=== PATIENT | male | born 1940 | race Caucasian/White ===

== ENCOUNTER 2020-12-12 14:09 | Day surgery (SDC) | payer MEDICARE, OTHER ==
[~2020-12-12] VITALS: Ht 177.8 cm; Wt 77.6 kg
[~2020-12-12 14:09] MED LIST: ASPI81CH; AXIRON30 MG/1.5 TOP; B Complex1 EAC2; DOXA4 PO; Doxazosin Mesyla2 MG; Hawthorn Berry500 MG; LUTEIN1 GM; MAGNESIUM CITR100 MG; MSM-GLUCOSAMIN1 EACH; MSM1500 MG; Multiple Vitam1 EAC1; OMEP20ER; PARO10; PARO30 PO; POTBIC25; ROSU5 PO; Saw Palmetto80 MG; Sudogest30 MG; Tart Cherry Ca1 EACH; Viagra100 MG
--- NOTE | 2020-12-12 17:10 | NUR ---
12/12/20 171 Gely Morfin PT. CRAWLED OUT OF HIS BED & CAME OUT TO THE [address] WAY SAYING HE'S BEEN WAITING AN HOUR & HE NEEDED TO "PEE" & WONDERING IF HE WAS FORGOTTEN. PT. MET BY RN IN [facility] & HELPED HIM TO THE BR. PT. INSTRUCTED HE HAD HIS CALL LIGHT AT THE BEDSIDE & WAS INSTRUCTED TO CALL IF NEEDED ANYTHING. PT. VERBALIZED HE DIDN'T KNOW IT WAS THERE. PT. THEN HELPED BACK TO HIS BED & WHILE ASSESSING PT. PT. HAD VERBALIZED THAT HE HAS DEMENTIA & DOESN'T REMEMBER WHEN HE TOOK ASPIRIN. PT. 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 PT. VERBALIZES HE TOLD HIS HOW HE FELT & DIDN'T WANT TO COME FOR HIS PROCEDURE HERE AT THE [facility]. HAD TOLD PT. THAT SHE THOUGHT HE SHOULD KEEP HIS PROCEDURE & PT. WAS GOING TO TELL THE TODAY ABOUT THINKING HE HAD A STROKE. PT. HAD NO OTHER WEAKNESS OR ANY FACIAL DROOP. [facility]SC WENT OUT TO TALK TO PT.'S TO SEE IF SHE HAD NOTICED ANYTHING DIFFERENT WITH HER 'S NEUROLOGIC STATUS. PER HIS HE DOES HAVE DEMENTIA BUT HE DIDN'T TAKE HIS CAFFEINE PILLS TODAY WHICH HELP HIM. HIS DID MENTION THAT HE MENTIONED TO HER THAT HE THINKS HE HAD A STROKE IN THE MIDDLE OF THE NIGHT. WENT BACK TO TALK WITH PT. & PT. HAD VERBALIZED THAT HE DIDN'T WANT TO HAVE HIS PROCEDURE TODAY THINKING IT COULD EXACERBATE HIS "STROKE" PT. STATED. PT. V.S.S. PT. WITH SINUS RIP ON [address] LEMUS NOTIFIED ABOUT PT. & DRFabby IN TALKING WITH PT. PT.'S WAS BROUGHT BACK TO HIS ROOM. PT. STATED "I JUST WANT TO GO HOME." DR. LEMUS WAS TALKING WITH PT. & HIS & THOUGHT IT WOULD BE A GOOD IDEA TO GO TO THE ER TO GET CHECKED OUT. PT. HAD TOLD DR. LEMUS THAT HE HAD A LINDQUIST AT THE TOP OF HIS HEAD RATING A "3". PT. HAD SAID THAT HE HAD HAD THE LINDQUIST BUT DIDN'T KNOW IF IT WAS HIS SINUSES. PT. FINALLY DECIDED HE WOULD GO TO THE ER. DR. LEMUS CALLED OVER TO THE ER & GAVE REPORT. PT. WAS TAKEN BY WC OVER TO THE ER ( WAS WITH PT.) & A TEAM OF NURSES WERE WAITING FOR THE PT.. REPORT WAS GIVEN TO ODILON PINEDO BY [facility]. PT. WAS TAKEN OVER TO ER AT 1610. PER DR. LEMUS OK TO LEAVE PT. IV IN. IV WAS CAPPED & WRAPPED WITH COBAN. PT. ALSO HAD VERBALIZED THAT HE WAS SHOPPING WITH HIS TODAY & HAD LOST HER & HE HAD ALSO VERBALIZED THAT HE HAD FORGOTTEN WHERE THE CAR WAS.
== END 2020-12-12 16:10 | disposition other institution (70) ==
LOC: ORSCSDS 14:09
DX: R13.10 Dysphagia, unspecified (principal); K21.9 Gastro-esophageal reflux disease without esophagitis; Z53.9 Procedure and treatment not carried out, unspecified reason
CPT/HCPCS: J2704; J7120

== ENCOUNTER 2020-12-12 16:15 | Emergency (ER) | payer MEDICARE, OTHER ==
[~2020-12-12] VITALS: Ht 177.8 cm; Wt 77.1 kg
[2020-12-12 16:37] LABS: BASOPHILS ABSOLUTE AUTO 0.08 K/mm3 (0.00-0.23); BASOPHILS PERCENT AUTO 1 % (0-2); EOSINOPHILS ABSOLUTE AUTO 0.27 K/mm3 (0.00-0.68); EOSINOPHILS PERCENT AUTO 3 % (0-6); Hematocrit 43.3 % (37.0-53.0); Hemoglobin 15.4 g/dL (13.5-17.5); IMMATURE GRAN ABSOLUTE AUTO 0.05 K/mm3 (0.00-0.10); IMMATURE GRAN PERCENT AUTO 1 % (0-1); LYMPHOCYTES ABSOLUTE AUTO 1.67 K/mm3 (0.84-5.20); LYMPHOCYTES PERCENT AUTO 19 % (21-46); MONOCYTES PERCENT AUTO 10 % (4-13); Mean Corpuscular HGB 32.7 pg (26.0-34.0); Mean Corpuscular HGB Conc 35.6 g/dL (31.5-36.5); Mean Corpuscular Volume 92 fL (80-100); Mean Platelet Volume 10.8 fL (9.1-12.4); NEUTROPHILS ABSOLUTE AUTO 5.82 K/mm3 (1.96-9.15); NEUTROPHILS PERCENT AUTO 66 % (41-73); Platelet Count 161 K/mm3 (150-400); RDW Coefficient Variation 13.2 % (11.7-14.2); RDW Standard Deviation 44.2 fL (35.1-46.3); Red Blood Cell Count 4.71 M/mm3 (4.30-5.90); White Blood Cell Count 8.79 K/mm3 (4.00-11.30)
[2020-12-12 16:58] LABS: Alanine Aminotransfer (ALT/SGP 34 U/L (12-78); Albumin/Globulin Ratio 1.2 (0.8-1.8); Alk Phos 50 U/L (50-136); Anion Gap 6 mmol/L (6-16); Aspartate Aminotrans (AST/SGOT 30 U/L (12-37); Bilirubin, Total 2.7 mg/dL (0.1-1.0); Blood Urea Nitrogen 8 mg/dL (8-24); Bun/Creatinine Ratio 8.8 (12.0-20.0); CO2, Blood 27 mmol/L (21-32); Calcium, Blood 9.9 mg/dL (8.5-10.1); Chloride, Blood 110 mmol/L (98-108); Creatinine, Blood 0.91 mg/dL (0.60-1.20); Globulin, Blood 3.2 g/dL (2.2-4.0); Glomerular Filtration Rate >60 (60-); Glucose, Blood 84 mg/dL (70-99); Potassium, Blood 3.9 mmol/L (3.5-5.5); Sodium, Blood 143 mmol/L (136-145); Total Protein, Blood 7.2 g/dL (6.4-8.2)
== END 2020-12-12 18:22 | disposition left against medical advice (07) ==
LOC: ER 16:15
PROVIDERS: Physician Assistant
DX: R41.0 Disorientation, unspecified (principal); Z53.21 Procedure and treatment not carried out due to patient leaving prior to being seen by health care provider
CPT/HCPCS: 70450; 80053; 85025; 93005; 93010; 99283-25

== ENCOUNTER 2022-09-03 09:26 | Emergency (ER) | payer MEDICARE, OTHER ==
[~2022-09-03] VITALS: Ht 177.8 cm; Wt 72.6 kg
== END 2022-09-03 12:35 | disposition home or self-care (01) ==
LOC: ER 09:26
DX: S00.11XA Contusion of right eyelid and periocular area, initial encounter (principal); S60.221A Contusion of right hand, initial encounter; F03.90 Unspecified dementia, unspecified severity, without behavioral disturbance, psychotic disturbance, mood disturbance, and anxiety; W18.30XA Fall on same level, unspecified, initial encounter; Z79.899 Other long term (current) drug therapy; Z79.82 Long term (current) use of aspirin; Z88.8 Allergy status to other drugs, medicaments and biological substances; Z95.0 Presence of cardiac pacemaker
CPT/HCPCS: 70450

== ENCOUNTER 2022-09-06 18:22 | Emergency (ER) | payer MEDICARE, OTHER ==
[~2022-09-06] VITALS: Ht 177.8 cm; Wt 90.7 kg
[2022-09-06 19:00] LABS: Calcium, Ionized (POC) 1.38 mmol/L (1.10-1.46); Chloride (POC) 101 mmol/L (98-108); Creatinine (POC) 0.9 mg/dL (0.8-1.3); Glucose (ISTAT POC) 123 mg/dL (70-99); Hemoglobin (POC) 12.6 g/dL (13.5-17.5); Potassium (POC) 4.3 mmol/L (3.5-5.5); Sodium (POC) 137 mmol/L (135-148); Total CO2 (POC) 27 mmol/L (21-32)
[2022-09-06] MEDS ORDERED: HYDR1TAB94 PO (20:21)
== END 2022-09-06 20:34 | disposition home or self-care (01) ==
LOC: ER 18:22
PROVIDERS: Emergency Medicine
DX: S20.221A Contusion of right back wall of thorax, initial encounter (principal); S09.90XA Unspecified injury of head, initial encounter; W01.0XXA Fall on same level from slipping, tripping and stumbling without subsequent striking against object, initial encounter; F03.90 Unspecified dementia, unspecified severity, without behavioral disturbance, psychotic disturbance, mood disturbance, and anxiety; Z88.8 Allergy status to other drugs, medicaments and biological substances; Z79.899 Other long term (current) drug therapy; Z79.82 Long term (current) use of aspirin
CPT/HCPCS: 36415; 70450; 71046; 80047; 85014; 99284-25

== ENCOUNTER → 2022-09-07 | Outpatient (CLI) | payer MEDICARE, OTHER ==
[~2022-09-07] MED LIST changes: +HYDR1TAB94 PO
[2022-09-08 11:19] LABS: Appearance, Urine Clear (Clear); Bilirubin, Urine Neg (Neg); Blood, Urine Neg (Neg); Color, Urine Yellow (P-Yellow); Glucose Qualitative, Urine Neg (Neg); Ketones, Urine Neg (Neg); Leukocyte Esterase, Urine Neg (Neg); Nitrite, Urine Neg (Neg); Protein, Urine 1+ (Neg); Urobilinogen, Urine NORM (Normal)
== END | disposition home or self-care (01) ==
LOC: LAB 12:30 → LAB SHORT 12:30
DX: N39.0 Urinary tract infection, site not specified (principal)
CPT/HCPCS: 87086

== ENCOUNTER 2023-01-21 15:18 | Emergency (ER) | payer MEDICARE, OTHER ==
[~2023-01-21] VITALS: Ht 180.3 cm; Wt 90.7 kg
[2023-01-21 16:16] LABS: BASOPHILS ABSOLUTE AUTO 0.03 K/mm3 (0.00-0.23); BASOPHILS PERCENT AUTO 1 % (0-2); EOSINOPHILS ABSOLUTE AUTO 0.23 K/mm3 (0.00-0.68); EOSINOPHILS PERCENT AUTO 5 % (0-6); Hematocrit 37.4 % (37.0-53.0); Hemoglobin 13.1 g/dL (13.5-17.5); IMMATURE GRAN ABSOLUTE AUTO 0.02 K/mm3 (0.00-0.10); IMMATURE GRAN PERCENT AUTO 0 % (0-1); LYMPHOCYTES ABSOLUTE AUTO 1.44 K/mm3 (0.84-5.20); LYMPHOCYTES PERCENT AUTO 29 % (21-46); MONOCYTES ABSOLUTE AUTO 0.43 K/mm3 (0.16-1.47); MONOCYTES PERCENT AUTO 9 % (4-13); Mean Corpuscular HGB 32.2 pg (26.0-34.0); Mean Corpuscular Volume 92 fL (80-100); Mean Platelet Volume 9.7 fL (9.1-12.4); NEUTROPHILS ABSOLUTE AUTO 2.85 K/mm3 (1.96-9.15); NEUTROPHILS PERCENT AUTO 57 % (41-73); Platelet Count 163 K/mm3 (150-400); RDW Coefficient Variation 13.5 % (11.7-14.2); RDW Standard Deviation 45.4 fL (35.1-46.3); Red Blood Cell Count 4.07 M/mm3 (4.30-5.90)
[2023-01-21] MEDS ORDERED: FLUTICASONE PRO16 GM NS (16:17)
[2023-01-21] MEDS ORDERED: IPRATROPIUM BRO30 ML NS (16:18)
[2023-01-21] MEDS ORDERED: XARELTO20 M1 PO (16:19)
[2023-01-21] MEDS ORDERED: MEMANTINE HCL E21 MG PO (16:19)
[2023-01-21] MEDS ORDERED: PAXIL2010 PO (16:21)
[2023-01-21 16:26] LABS: Albumin, Blood 3.5 g/dL (3.4-5.0); Albumin/Globulin Ratio 1.1 (0.8-1.8); Bilirubin, Total 0.8 mg/dL (0.1-1.0); Bun/Creatinine Ratio 27.6 (12.0-20.0); Calcium, Blood 9.3 mg/dL (8.5-10.1); Creatinine, Blood 0.76 mg/dL (0.60-1.20); Globulin, Blood 3.2 g/dL (2.2-4.0); Magnesium, Blood 2.1 mg/dL (1.6-2.4); Phosphorus, Blood 2.1 mg/dL (2.5-4.9); Potassium, Blood 4.1 mmol/L (3.5-5.5); Total Protein, Blood 6.7 g/dL (6.4-8.2)
[2023-01-21 16:32] LABS: D-Dimer, Quantitative <0.19 mg/L FEU (0.00-0.52); International Normalized Ratio 1.13; Prothrombin Time Results 11.8 Sec (9.7-11.5)
[2023-01-21 18:00] VITALS: BP 111/73
== END 2023-01-21 19:50 | disposition home or self-care (01) ==
LOC: ER 15:18
PROVIDERS: Emergency Medicine
DX: R07.89 Other chest pain (principal); Z88.8 Allergy status to other drugs, medicaments and biological substances; Z79.899 Other long term (current) drug therapy; Z79.82 Long term (current) use of aspirin; N18.9 Chronic kidney disease, unspecified
CPT/HCPCS: 71046; 80053; 83735; 84100; 84484; 85025; 85379; 85610; 85730; 93005; 93010; 99285-25

== ENCOUNTER 2023-07-09 06:26 | Day surgery (SDC) | payer MEDICARE, OTHER ==
[~2023-07-09] VITALS: Ht 177.8 cm; Wt 82.1 kg
[~2023-07-09 06:26] MED LIST changes: +FAMO20 PO; +FINA5 PO; +FLUTICASONE PRO16 GM NS; +IPRATROPIUM BRO30 ML NS; +LORA10ER PO; +MEMA10 PO; +MEMANTINE HCL E21 MG PO; -Multiple Vitam1 EAC1; +Multiple Vitam1 EAC1 PO; +PAXIL2010 PO; +POTA10T PO; +PSEU120ER PO; +XARELTO20 M1 PO
[2023-07-09 06:53] VITALS: BP 121/82
[2023-07-09 06:55] VITALS: BP 121/82
[2023-07-09 09:13] VITALS: BP 129/87
[2023-07-09 09:15] VITALS: BP 114/72
[2023-07-09 09:30] VITALS: BP 112/74
--- NOTE | 2023-07-09 09:45 | NUR ---
PT UP TO THE BATHROOM /C SBA. TOLERATED WELL.
[2023-07-09 09:46] VITALS: BP 103/69
--- NOTE | 2023-07-09 11:00 | NUR ---
PT AND VERBALIZED UNDERSTANDING OF WRITTEN AND VERBAL D/C INST. L UPPER CHEST DRSG CDI. NO SWELLING. PT IV REMOVED. PT AMB OUT OF THE HRT CENTER /C SBA /S DIFFICULTY.
[2023-07-09] MEDS ORDERED: CLOP75 PO (11:25)
== END 2023-07-09 11:40 | disposition home or self-care (01) ==
LOC: MHTC 06:26
DX: Z45.010 Encounter for checking and testing of cardiac pacemaker pulse generator [battery] (principal); I48.0 Paroxysmal atrial fibrillation; F03.90 Unspecified dementia, unspecified severity, without behavioral disturbance, psychotic disturbance, mood disturbance, and anxiety; E78.5 Hyperlipidemia, unspecified
CPT/HCPCS: 33228; C1785; J1644; J3370; J7040

== ENCOUNTER → 2023-07-23 | Outpatient (CLI) | payer MEDICARE, OTHER ==
[~2023-07-23] MED LIST changes: +CLOP75 PO
[2023-07-24 14:45] LABS: Stool Occult Bld Immuno 1 Negative (NEGATIVE)
== END | disposition home or self-care (01) ==
LOC: LAB SHORT 10:46 → LAB 10:46
PROVIDERS: Family Medicine
DX: D64.9 Anemia, unspecified (principal)
CPT/HCPCS: 82274